=== PATIENT | female | born 1990 | race African-American/Black ===

== ENCOUNTER 2017-04-20 15:20 | Emergency (ER) | payer SELFPAY ==
[~2017-04-20] VITALS: Ht 152.4 cm; Wt 70.0 kg
[2017-04-20 17:51] VITALS: BP 100/70
== END 2017-04-20 18:23 | disposition left against medical advice (07) ==
LOC: ER 18:23
DX: R07.0 Pain in throat (principal); F12.10 Cannabis abuse, uncomplicated
CPT/HCPCS: 99281

== ENCOUNTER 2025-04-11 00:01 | Emergency (ER) | payer MEDICAID ==
[~2025-04-11] VITALS: Ht 167.6 cm; Wt 76.0 kg
[2025-04-11 00:03] VITALS: O2SAT 98
[2025-04-11 00:30] VITALS: TEMP 36.6
[2025-04-11] MEDS: SODIUM CHLORIDE 0.9% 1,000 ML IV STA (00:33)
[2025-04-11 00:52] LABS: BASOPHILS % 0.2 % (0.0-2.0); EOSINOPHILS % 0.3 % (0.0-5.0); HEMATOCRIT. 44.6 % (36.0-48.0); HEMOGLOBIN. 14.4 g/dL (12.0-16.0); LYMPHOCYTES % 10.4 % (20.0-50.0); MEAN PLATELET VOLUME 6.9 fl (7.4-10.4); MONOCYTES % 6.0 % (2.0-8.0); NEUTROPHILS % 83.1 % (40.0-76.0); PLATELET 348 x1000/uL (130-400); RED BLOOD CELL COUNT 4.57 mill/uL (4.2-5.4); RED CELL DISTRIBUTION WIDTH 14.3 % (11.6-14.6)
[2025-04-11 01:02] LABS: CREATININE 1.1 mg/dL (0.6-1.0); ETHANOL BLOOD 14 mg/dL (<10); UREA NITROGEN BLOOD 13 mg/dL (9-23)
[2025-04-11 01:04] LABS: ASPARTATE AMINOTRANSFERASE 41 IU/L (<34); BILIRUBIN DIRECT 0.3 mg/dL (<=3.0); BILIRUBIN TOTAL 0.9 mg/dL (0.1-1.0); PROTEIN TOTAL 6.7 g/dL (6.0-8.3)
[2025-04-11 01:22] LABS: HCG SCREEN POSITIVE
[2025-04-11] MEDS ORDERED: POTASSIUM CHLORIDE 20MEQ/PACKET PO NR (01:30)
[2025-04-11] MEDS: ONDANSETRON HCL 4MG/2ML INJ IV NR ×2 (03:27→03:30)
[2025-04-11] MEDS ORDERED: PREN-28 MT (04:05)
[2025-04-11] MEDS ORDERED: NALO4SPR BOTHNSTRLS (04:05)
[2025-04-11 04:25] VITALS: BP 100/61; PULSE 106; RESP 14; O2SAT 98
[2025-04-11] MEDS: POTASSIUM CHLORIDE 20MEQ/PACKET PO NR (04:29)
== END 2025-04-11 04:50 | disposition home or self-care (01) ==
LOC: ER 00:01
DX: O26.891 Other specified pregnancy related conditions, first trimester (principal); R41.82 Altered mental status, unspecified; F12.90 Cannabis use, unspecified, uncomplicated; Z98.890 Other specified postprocedural states; Z79.899 Other long term (current) drug therapy; N89.8 Other specified noninflammatory disorders of vagina; Z3A.12 12 weeks gestation of pregnancy
CPT/HCPCS: 80076; 80048; 80307; 80329; 80320; 84703; 84702; 85025; 36415; 76801; 76817; 93005; 96361; 96374; 99285; J2405; J7030; Z7610 ×2; 81025; A4606; G0480